=== PATIENT | male | born 1975 | race Caucasian/White ===

== ENCOUNTER 2017-10-19 12:44 | Emergency (ER) | payer BC ==
[2017-10-19 13:17] VITALS: BP 147/87
--- NOTE | 2017-10-19 16:05 | UC ---
UC General HPI - HPI Summary HPI Summary: pt is c/o numbness to his toes and stabbing pains in R foot since 2016 and then L foot since 02/2017. was seen in UC and dx with plantar fasciitis in 2016. tx with exercises and otc shoe inserts with no relief. no hx DM, thirst, frequent urination, weight loss. not vegetarian or vegan. no pvd. no exertional pain. no injuries. took a single gabapentin from his which helped the pain. now has health insurance and seeking tx. - History of Current Complaint Chief Complaint: UCLowerExtremity Stated Complaint: NUMBNESS/TINGLING IN FEET (ТАТЬЯНА) Time Seen by Provider: 10/19/17 15:40 Hx Obtained From: Patient, Family/Credit Control Clerk Onset/Duration: Gradual Onset Timing: Constant Pain Intensity: 3 Aggravating: nothing Alleviating: prolong standing Associated Signs & Symptoms: Negative: Back Pain, Diaphoresis, Fever, Weakness - Allergy/Home Medications Allergies/Adverse Reactions: Allergies Allergy/AdvReac Type Severity Reaction Status Date / Time No Known Allergies Allergy Verified 10/19/17 13:00 Home Medications: Home Medications Gabapentin CAP(*) [Neurontin 300 CAP(*)] 300 mg PO ONCE PRN 10/19/17 [History Confirmed 10/19/17] Naproxen [Naproxen 500 mg] 500 mg PO DAILY PRN 10/19/17 [History Confirmed 10/19] PMH/Surg Hx/FS Hx/Imm Hx Previously Healthy: Yes - Surgical History Surgical History: Yes Surgery Procedure, Year, and Place: hernia age 5 - Family History Known Family History: Positive: Diabetes Negative: Other - NO PLANTAR FASCITIS NO GOUT - Social History Occupation: Employed Full-time Lives: With Family Alcohol Use: Weekly Alcohol Amount: 10 per week Substance Use Type: None Smoking Status (MU): Heavy Every Day Tobacco Smoker Amount Used/How Often: 1 ppd Review of Systems Constitutional: Negative Skin: Negative Eyes: Negative ENT: Negative Respiratory: Negative Cardiovascular: Negative Gastrointestinal: Negative Genitourinary: Negative Motor: Negative Neurovascular: Negative Musculoskeletal: Negative Neurological: Paresthesia - feet Psychological: Negative Is Patient Immunocompromised?: No All Other Systems Reviewed And Are Negative: Yes Physical Exam Triage Information Reviewed: Yes Appearance: Well-Appearing Vital Signs: Initial Vital Signs Temp 99.7 F 10/19/17 13:03 Pulse 94 10/19/17 13:03 Resp 18 10/19/17 13:03 BP 147/87 10/19/17 13:03 Pulse Ox 100 10/19/17 13:03 Vital Signs Reviewed: Yes Eyes: Positive: Conjunctiva Clear ENT: Positive: Pharynx normal, TMs normal. Negative: Nasal congestion, Nasal drainage Neck: Positive: Supple, Nontender, No Lymphadenopathy Respiratory: Positive: Chest non-tender, Lungs clear, Normal breath sounds Cardiovascular: Positive: RRR, No Murmur, Pulses Normal Abdomen Description: Positive: Nontender, No Organomegaly, Soft Bowel Sounds: Positive: Present Musculoskeletal: Positive: Other: - BLE's=very little hair below knees otherwise no gross defomrity, swelling or discoloration. Feet non tender. Strong pedal pulses. s/m intact to both feet. Back nontender and rom intact. Neurological: Positive: Alert Psychological: Positive: Normal Response To Family, Age Appropriate Behavior Skin Exam: Normal Diagnostics - Laboratory Diagnostic Studies Completed/Ordered: non fasting CO=240 Course/Dx - Course Course Of Treatment: non fasting MP=825 thus neuropathy is probably an undiagnosed diabetic issue. Will assist pt with f/u. - Differential Dx - Multi-Symptom Differential Diagnoses: Other - not an infection, no concern for fx, not c/w acute arterial occlusion or claudication. no overt back pathology. not c/w plantar fasciitis. h DM and BS here is 294. peripheral neuropathy may be from DM. will assist with f/u. nothing to suggest dka. Provider Diagnoses: Hyperglycemia. Peripheral neuropathy. Discharge - Discharge Plan Condition: Stable Disposition: HOME Patient Education Materials: Meal Planning with Diabetes Exchanges (DC), Peripheral Neuropathy (ED), Diabetic Hyperglycemia (ED) Referrals: [facility] [Outside] Additional Instructions: CALL PHYSICIAN LOGGING [employer]W [employer]EM[facility] FIRST THING IN AM. THEY WILL HELP YOU GET A FOLLOW UP APPOINTMENT SOON POSSIBLE
== END 2017-10-19 16:35 | disposition home or self-care (01) ==
LOC: UCCORT 12:44
DX: R73.9 Hyperglycemia, unspecified (principal); G62.9 Polyneuropathy, unspecified; F17.210 Nicotine dependence, cigarettes, uncomplicated
CPT/HCPCS: 99211; G0463